=== PATIENT | male | born 1985 | race African-American/Black ===

== ENCOUNTER 2018-05-31 02:06 | Emergency (ER) | payer OTHER ==
[2018-05-31 02:48] VITALS: BP 140/90; PULSE 71; TEMP 99.3; BMI 25.1
--- NOTE | 2018-05-31 03:17 | PDOC ---
History of Present Illness - General Chief Complaint: Cold Symptoms Stated Complaint: FLU LIKE SYMPTOMS Time Seen by Provider: 05/31/18 02:59 History Source: Patient Exam Limitations: No Limitations - History of Present Illness Initial Comments: 05/31/18 03:10 Patient is a 32 year old male with h/o asthma, polypectomy colon c/o "flulike illness" since 05/28/18. States symptoms of cough, fever, CHUA, bodyaches, chills , retro-orbital pain. Pain is achy 6/10, cough productive of white sputum. (+ ) diarrhea. States yesterday has chest pain below the left breast which lasted for 15 mins has been resolved since. PMD: Dr. Mariah Greene PMHX: as above PSOCHX: occ etoh, neg drug, neg cig ALL: NKDA GENERAL/CONSTITUTIONAL: [No fever or chills. No weakness. No weight change.] HEAD, EYES, EARS, NOSE AND THROAT: [No change in vision. No ear pain or discharge. No sore throat.] CARDIOVASCULAR: [No chest pain or shortness of breath.] RESPIRATORY: [No cough, wheezing, or hemoptysis.] GASTROINTESTINAL: [No nausea, vomiting, diarrhea or constipation. No rectal bleeding.] GENITOURINARY: [No dysuria, frequency, or change in urination.] MUSCULOSKELETAL: [No joint or muscle swelling or pain. No neck or back pain.] SKIN AND BREASTS: [No rash or easy bruising.] NEUROLOGIC: [No headache, vertigo, loss of consciousness, or loss of sensation.] PSYCHIATRIC: [No depression or anxiety.] ENDOCRINE: [No increased thirst. No abnormal weight change.] HEMATOLOGIC/LYMPHATIC: [No anemia, easy bleeding, or history of blood clots.] ALLERGIC/IMMUNOLOGIC: [No hives or skin allergy. No latex allergy.] GENERAL: [The patient is awake, alert, and fully oriented, in no acute distress. ] HEAD: [Normal with no signs of trauma.] EYES: [Pupils equal, round and reactive to light, extraocular movements intact, sclera anicteric, conjunctiva clear.] ENT: [Ears normal, nares patent, oropharynx clear without exudates. Moist mucous membranes.] NECK: [Normal range of motion, supple without lymphadenopathy, JVD, or masses.] LUNGS: [Breath sounds equal, clear to auscultation bilaterally. No wheezes, and no crackles.] HEART: [Regular rate and rhythm, normal S1 and S2 without murmur, rub.] ABDOMEN: [Soft, nontender, normoactive bowel sounds. No guarding, no rebound. No masses.] EXTREMITIES: [Normal range of motion, no edema. No clubbing or cyanosis. No cords, erythema, or tenderness.] NEUROLOGICAL: [Cranial nerves II through XII grossly intact. Normal speech, normal gait.] PSYCH: [Normal mood, normal affect.] SKIN: [Warm, Dry, normal turgor, no rashes or lesions noted.] Past History - Past Medical History Allergies/Adverse Reactions: Allergies Allergy/AdvReac Type Severity Reaction Status Date / Time No Known Allergies Allergy Verified 05/31/18 02:48 Asthma: Yes COPD: No - Surgical History GI Surgery: Yes - Suicide/Smoking/Psychosocial Hx Smoking History: Never smoked *Physical Exam - Vital Signs Last Vital Signs Temp Pulse Resp BP Pulse Ox 99.3 F 71 18 140/90 95 05/31/18 02:46 05/31/18 02:46 05/31/18 02:46 05/31/18 02:46 05/31/18 02:46 Moderate Sedation - Procedure Monitoring Vital Signs: Procedure Monitoring Vital Signs Temperature 99.3 F 05/31/18 02:46 Pulse Rate 71 05/31/18 02:46 Respiratory Rate 18 05/31/18 02:46 Blood Pressure 140/90 05/31/18 02:46 O2 Sat by Pulse Oximetry (%) 95 05/31/18 02:46 Medical Decision Making - Medical Decision Making 05/31/18 03:10 Patient is a 32 year old male with h/o asthma, polypectomy colon c/o "flulike illness" since 05/28/18. States symptoms of cough, fever, CHUA, bodyaches, chills , retro-orbital pain. Pain is achy 6/10, cough productive of white sputum. (+ ) diarrhea. States yesterday has chest pain below the left breast which lasted for 15 mins has been resolved since. cxr flu swab rapid strep 05/31/18 04:30 Influenza A and B are negative Chest x-ray negative rapid strep neg I discussed the physical exam findings, ancillary test results and final diagnoses with the patient. I answered all of the patient's questions. The patient was satisfied with the care received and felt comfortable with the discharge plan and treatment plan. The Patient agrees to follow up with the primary care physician within 24-72 hours. *DC/Admit/Observation/Transfer Diagnosis at time of Disposition: Viral illness - Discharge Dispostion Disposition: HOME Condition at time of disposition: Stable - Referrals Referrals: Mariah Greene MD [Primary Care Provider] - - Patient Instructions Printed Discharge Instructions: DI for Viral Gastroenteritis -- Adult, DI for Viral Upper Respiratory Infection -- Adult - Post Discharge Activity Forms/Work/School Notes: Back to Work
[2018-05-31] MEDS ORDERED: IBUPROFEN 600 MG TABLET (FP) PO ONE ×2 (04:26→04:58)
== END 2018-05-31 05:35 | disposition home or self-care (01) ==
LOC: JER 02:06
DX: J06.9 Acute upper respiratory infection, unspecified (principal); B97.89 Other viral agents as the cause of diseases classified elsewhere
CPT/HCPCS: 71046-TC-FY; 87070; 87804; 87880; 99281-25

== ENCOUNTER 2018-08-15 03:33 | Emergency (ER) | payer OTHER ==
[2018-08-15] MEDS ORDERED: LIDOCAINE HCL 2% (50ML VIAL) INF ONE (03:52)
[2018-08-15] MEDS ORDERED: LIDOCAINE HCL 2% (20ML MULTI-DOSE VIAL) NR ONE (03:55)
[2018-08-15 04:09] VITALS: BP 137/77; PULSE 88; TEMP 98.7; BMI 68.8
--- NOTE | 2018-08-15 04:16 | PDOC ---
History of Present Illness - General Chief Complaint: Injury Stated Complaint: INJURY,RT HAND Time Seen by Provider: 08/15/18 03:38 History Source: Patient Exam Limitations: No Limitations Past History - Past Medical History Allergies/Adverse Reactions: Allergies Allergy/AdvReac Type Severity Reaction Status Date / Time No Known Allergies Allergy Verified 08/15/18 04:05 Home Medications: Ambulatory Orders Cephalexin [Keflex] 500 mg PO BID #6 capsule 08/15/18 Asthma: Yes COPD: No - Surgical History GI Surgery: Yes - Immunization History Immunization Up to Date: Yes - Suicide/Smoking/Psychosocial Hx Smoking History: Never smoked Have you smoked in the past 12 months: No Information on smoking cessation initiated: No Hx Alcohol Use: No Drug/Substance Use Hx: No *Physical Exam - Vital Signs Last Vital Signs Temp Pulse Resp BP Pulse Ox 98.7 F 88 20 137/77 99 08/15/18 04:06 08/15/18 04:06 08/15/18 04:06 08/15/18 04:06 08/15/18 04:06 - Physical Exam General Appearance: No: Apparent Distress Musculoskeletal: positive: Other (around 2 cm linear laceration to distal end of R index finger along volar aspect, nailbed not involved). negative: Decreased Range of Motion Extremity: positive: Normal Capillary Refill. negative: Swelling Integumentary: negative: Swelling, Ecchymosis Neurologic: positive: Alert, Abnormal Cranial NS Procedures - Laceration/Wound Repair Right Finger 2nd digit Wound Length: to 2.5 cm Wound Explored: clean, no foreign body present Wound's Depth, Shape: superficial, linear Irrigated w/ Saline: Yes Betadine Prep: Yes Anesthesia: 2% Lidocaine Wound Debrided: moderate Wound Repaired With: Sutures Suture Size/Type: 5:0 Number of Sutures: 8 Layer Closure: No ED Treatment Course - Medications Given in the ED: ED Medications Discontinued Medications Generic Name Dose Route Start Last Admin Trade Name Freq PRN Reason Stop Dose Admin Lidocaine HCl 3 mg 08/15/18 03:52 08/15/18 04:05 Xylocaine 2% INF 08/15/18 03:53 3 mg ONCE ONE Administration Medical Decision Making - Medical Decision Making 32 y/o M hx of asthma presents with R index finger laceration that occurred around 2 AM today. Patient states accidentally cut himself with razor. Tetanus is UTD per patient. Denies fever, other trauma. Patient is L handed. R index finger laceration, appears clean; laceration was repaired D/W Dr. Polanco - would like prophylactic antibiotics for 3 days 08/15/18 04:15 *DC/Admit/Observation/Transfer Diagnosis at time of Disposition: Finger laceration Qualifiers: Encounter type: initial encounter Finger: index finger Damage to nail status: without damage Foreign body presence: without foreign body Laterality: right Qualified Code(s): S61.210A - Laceration without foreign body of right index finger without damage to nail, initial encounter - Discharge Dispostion Disposition: HOME Condition at time of disposition: Stable Decision to Admit order: No - Prescriptions Prescriptions: Cephalexin [Keflex] 500 mg PO BID #6 capsule - Referrals Referrals: Cl Bianchi MD [Primary Care Provider] - 2 Days - Patient Instructions Printed Discharge Instructions: DI for Laceration Repair -- Finger Additional Instructions: Thank you for choosing [facility]. It was a pleasure taking care of you. You were seen here for laceration which was repaired Keep site dry for the next 24 hrs You were given antibiotics to take for 3 days Return in 7-10 days for suture removal Return to the Emergency Department if your symptoms worsen or persist, you have fever, swelling, redness, streaking, pustular drainage or other concerning symptoms. - Post Discharge Activity
[2018-08-15] MEDS ORDERED: ONDANSETRON 4 MG/2 ML VIAL IM ONE (04:50)
[2018-08-15] MEDS ORDERED: ONDANSETRON 4 MG/2 ML VIAL ONE (04:52)
== END 2018-08-15 05:28 | disposition home or self-care (01) ==
LOC: JER 03:33
PROC: 0HQFXZZ Repair Right Hand Skin, External Approach (ICD-10-PCS; principal; 2018-08-15)
DX: S61.210A Laceration without foreign body of right index finger without damage to nail, initial encounter (principal); W45.8XXA Other foreign body or object entering through skin, initial encounter; W26.0XXA Contact with knife, initial encounter; Y93.89 Activity, other specified; Y92.89 Other specified places as the place of occurrence of the external cause; Y99.8 Other external cause status
CPT/HCPCS: 12001-25; 99282-25

== ENCOUNTER 2021-08-31 21:17 | Emergency (ER) | payer OTHER ==
[2021-08-31] MEDS ORDERED: SODIUM CHLORIDE 1,000 ML IV ONE ×2 (21:29→22:12)
[2021-08-31] MEDS ORDERED: ONDANSETRON 4 MG/2 ML VIAL IVPB ONE (21:30)
[2021-08-31] MEDS ORDERED: ONDANSETRON 4 MG/2 ML VIAL ONE (21:38)
[2021-08-31 21:40] VITALS: BP 129/81; PULSE 73; TEMP 99; BMI 23.6
[2021-08-31 22:01] LABS: HEMATOCRIT 50.2 % (35.4-49); HEMOGLOBIN 17.7 G/dL (11.7-16.9); MCH 32.5 pg (25.7-33.7); MCHC 35.2 g/dl (32.0-35.9); MEAN CELL VOLUME 92.2 fl (80-96); MEAN PLT VOLUME 7.5 fl (7.5-11.1); RBC 5.45 10^6/uL (4.00-5.60); RDW 14.2 % (11.9-15.9)
[2021-08-31 22:10] LABS: ALBUMIN 5.2 g/dl (3.4-5.0); BILIRUBIN,TOTAL 1.2 mg/dl (0.2-1); CALCIUM 10.5 mg/dl (8.5-10); CREATININE 1.1 mg/dl (0.55-1.3); TOT PROT 8.7 g/dl (6.4-8.2)
[2021-08-31 22:16] LABS: PLATELET ESTIMATE ADEQUATE
[2021-09-02 21:06] LABS: SARS-CoV-2 NAA Not Detected (Not Detected)
== END 2021-09-01 00:23 | disposition home or self-care (01) ==
LOC: FER 21:17
PROC: 3E033GC Introduction of Other Therapeutic Substance into Peripheral Vein, Percutaneous Approach (ICD-10-PCS; principal; 2021-08-31)
PROC: 3E0337Z Introduction of Electrolytic and Water Balance Substance into Peripheral Vein, Percutaneous Approach (ICD-10-PCS; 2021-08-31)
PROC: 3E0337Z Introduction of Electrolytic and Water Balance Substance into Peripheral Vein, Percutaneous Approach (ICD-10-PCS; 2021-08-31)
DX: R11.2 Nausea with vomiting, unspecified (principal)
CPT/HCPCS: 36415; 80053; 85025; 99284-25; C9803-CS; U0003; U0005